=== PATIENT | male | born 1990 | race African-American/Black ===

== ENCOUNTER 2022-10-02 14:20 | Emergency (ER) | payer MEDICAID, OTHER ==
[~2022-10-02] VITALS: Ht 182.9 cm; Wt 59.0 kg
[2022-10-02] MEDS ORDERED: NITR30OI6 PR (17:19)
[2022-10-02 17:20] VITALS: BP 115/71
[2022-10-02] MEDS ORDERED: LIDOCAINE 2% VISCOUS 15 ML SOLUTION UDCUP MM ONE (17:30)
== END 2022-10-02 18:05 | disposition home or self-care (01) ==
LOC: EMS 14:25
DX: K64.5 Perianal venous thrombosis (principal); F17.210 Nicotine dependence, cigarettes, uncomplicated; F12.90 Cannabis use, unspecified, uncomplicated
CPT/HCPCS: 99282; Z7502; Z7610

== ENCOUNTER 2024-04-16 18:42 | Emergency (ER) | payer OTHER ==
[~2024-04-16] VITALS: Ht 188 cm; Wt 70.5 kg
[~2024-04-16 18:42] MED LIST: NITR30OI6 PR
[2024-04-16 18:46] VITALS: TEMP 97.9
[2024-04-16 21:31] LABS: BASOPHILS % (AUTO) 1.1 % (0.0-2.0); EOSINOPHILS % (AUTO) 4.3 % (1.0-6.0); HEMATOCRIT 43.3 % (41-53); HEMOGLOBIN 14.2 g/dL (13.5-17.5); LYMPHOCYTES # (AUTO) 1.9 K/uL (1.0-4.8); LYMPHOCYTES % (AUTO) 25.4 % (22.0-44.0); MEAN CORPUSCULAR HEMOGLOBIN 30.1 pg (26.0-34.0); MEAN CORPUSCULAR HGB CONC 32.8 G/dL (31.0-37.0); MEAN CORPUSCULAR VOLUME 92 fL (80-100); MONOCYTES # (AUTO) 0.7 K/uL (0.1-1.0); MONOCYTES % (AUTO) 9.5 % (2.0-9.0); NEUTROPHILS # (AUTO) 4.5 K/uL (1.8-7.7); NEUTROPHILS % (AUTO) 59.7 % (40.0-70.0); PLATELET COUNT (AUTO) 338 K/uL (150-450); RED BLOOD CELL COUNT(AUTO) 4.72 MIL/uL (4.50-5.90); RED CELL DISTRIBUTION WIDTH 14.6 % (11.5-14.5); WHITE BLOOD COUNT (AUTO) 7.6 K/uL (4.5-11.0)
[2024-04-16 21:40] LABS: ANION GAP 4 mmol/L (8-16); CALCIUM, TOTAL 9.5 mg/dL (8.8-10.5); CARBON DIOXIDE 31 mmol/L (22-29); CHLORIDE 104 mmol/L (98-107); CREATININE 1.22 mg/dL (0.60-1.30); GLOMERULAR FILTR. RATE CALC > 60 mL/min (>60); GLUCOSE,RANDOM 62 mg/dL (70-110); POTASSIUM 4.2 mmol/L (3.5-5.1); SODIUM SERUM 139 mmol/L (136-145); UREA NITROGEN, BLOOD 12 mg/dL (7-18)
[2024-04-16 22:35] LABS: APPEARANCE,URINE CLEAR (CLEAR); BILIRUBIN,URINE NEGATIVE (NEGATIVE); COLOR,URINE YELLOW (YELLOW); GLUCOSE, URINE (UA) NEGATIVE (NEGATIVE); KETONES,URINE NEGATIVE (NEGATIVE); LEUKOCYTE ESTERASE ,URINE MODERATE (NEGATIVE); NITRATE,URINE NEGATIVE (NEGATIVE); OCCULT BLOOD,URINE NEGATIVE (NEGATIVE); PROTEIN,URINE 30-70 mg/dL (NEGATIVE); SPECIFIC GRAVITIY, URINE 1.032 (1.003-1.030)
[2024-04-16 22:45] LABS: BACTERIA,URINE Few /HPF (None Seen); RBC,URINE None Seen /HPF (0-2); SQUAMOUS EPITHELIAL CELL,UR Many /LPF (None Seen)
[2024-04-16] MEDS ORDERED: DOXY-354 PO (23:10)
[2024-04-16] MEDS: CefTRIAXone SODIUM 1 GM/VIAL IM ONE (23:18)
[2024-04-16] MEDS: LIDOCAINE/PF 1% 2 ML VIAL IM ONE (23:20)
[2024-04-16 23:31] VITALS: BP 121/52; PULSE 74; RESP 16
== END 2024-04-16 23:33 | disposition home or self-care (01) ==
LOC: EMS 19:00
DX: L03.314 Cellulitis of groin (principal); F17.210 Nicotine dependence, cigarettes, uncomplicated; F12.90 Cannabis use, unspecified, uncomplicated
CPT/HCPCS: 99285; 80048; 81001; 85025; 36415; 87086; 87186; 76870; 87491; 87591; 96372; J0696; J3490